=== PATIENT | male | born 1945 | race African-American/Black ===

== ENCOUNTER 2023-12-15 09:45 | Inpatient (IN) | payer OTHER ==
[~2023-12-15] VITALS: Ht 185.4 cm; Wt 138.5 kg
[2023-12-15] MEDS: SODIUM CHLORIDE 0.9% 1,000 ML IV ONE (10:30)
[2023-12-15] MEDS: PANTOPRAZOLE 40mg/50ML NS AE 50 ML IV ONE (10:30)
[2023-12-15 11:34] LABS: Basophils # (auto) 0 10 ^3/uL (0-0.2); Basophils % (auto) 0.3 % (0.0-2.0); Eosinophils # (auto) 0.2 10 ^3/uL (0-0.8); Eosinophils % (auto) 1.8 % (0.0-7.0); Hematocrit 40.8 % (41.0-53.0); Hemoglobin 13.2 g/dL (13.5-17.5); Lymphocytes # (auto) 2.2 10 ^3/uL (0.4-5.4); Lymphocytes % (auto) 20.3 % (10.0-50.0); Mean Corpuscular Hemoglobin 30.6 pg (28.0-32.0); Mean Corpuscular Hgb Conc. 32.3 g/dL (32.0-36.0); Mean Corpuscular Volume 94.8 fL (80.0-100.0); Monocytes # (auto) 1.4 10 ^3/uL (0-1.3); Monocytes % (auto) 12.6 % (0.0-12.0); Neutrophils # (auto) 7.1 10 ^3/uL (1.6-8.6); Nucleated Red Blood Cells % 0.1 %; Red Cell Distribution Width 15.3 % (11.8-14.3); White Blood Cell 10.9 10^3/uL (4.4-10.8)
[2023-12-15 11:43] VITALS: PULSE 90; RESP 18; O2SAT 97
[2023-12-15 11:48] LABS: INR 1.26 (0.9-1.15); Partial Thromboplastin Time 59.7 SEC (24.5-34.5)
[2023-12-15 11:50] LABS: Alanine Aminotransferase 22 U/L (7-40); Albumin 3.6 g/dL (3.2-4.8); Alkaline Phosphatase 62 U/L (46-116); Anion Gap 4 (5-15); Aspartate Aminotransferase 14 U/L (13-40); BUN/Creatinine Ratio 35.3 (10.0-20.0); Blood Urea Nitrogen 30 mg/dL (9-23); Calcium 10.1 mg/dL (8.5-10.1); Carbon Dioxide 29 mmol/L (20-30); Chloride 109 mmol/L (98-107); Glucose 68 mg/dL (74-106); Sodium 142 mmol/L (136-145)
[2023-12-15 11:51] LABS: Bilirubin, Total 0.4 mg/dL (0.2-1.0); Total Protein 6.2 g/dL (5.7-8.2)
[2023-12-15 13:35] LABS: Urine Bacteria MANY /hpf (None Seen); Urine Blood 2+ /uL (Negative); Urine Clarity HAZY (Clear); Urine Color Yellow (Yellow); Urine Mucus FEW (None Seen); Urine Protein, UAD TRACE (Negative); Urine Specific Gravity 1.019 (1.001-1.035); Urine Urobilinogen Normal (Negative); Urine WBC 50 /hpf (0 - 3); Urine WBC Clumps PRESENT /hpf (None Seen)
[2023-12-15] MEDS: FLEET ENEMA(ADULT) 135 ML PR SCH (15:30)
[2023-12-15] MEDS ORDERED: PANTOPRAZOLE 40mg/50ML NS AE 50 ML IV SCH (15:30)
[2023-12-15] MEDS ORDERED: MORPHINE SULFATE INJ 2 MG/ml SYRG IV PRN (15:30)
[2023-12-15] MEDS: SODIUM CHLORIDE 0.9% 1,000 ML IV SCH (15:30)
[2023-12-15] MEDS ORDERED: NITROGLYCERIN 0.4 MG SL TAB SL PRN (15:30)
[2023-12-15] MEDS ORDERED: DOCUSATE SOD 100 MG CAP PO PRN (15:30)
[2023-12-15] MEDS: cefTRIAXone 1GM/50ML D5W 50 ML IV ONE (15:35)
[2023-12-15] MEDS ORDERED: DEXTROSE (50%) 50ML SYRG IV PRN (16:30)
[2023-12-15] MEDS ORDERED: ATOR20TA50 PO (16:42)
[2023-12-15] MEDS ORDERED: HYDR25TA87 PO (16:42)
[2023-12-15] MEDS ORDERED: TAMS0.4C36 PO (16:42)
[2023-12-15] MEDS ORDERED: FINA5TAB4 PO (16:42)
[2023-12-15] MEDS ORDERED: ISOS20TA5 PO (16:42)
[2023-12-15] MEDS ORDERED: LEVO137T3 PO (16:42)
[2023-12-15] MEDS ORDERED: LEVO100T8 PO (16:42)
[2023-12-15] MEDS ORDERED: EMPA1TAB3 PO (16:42)
[2023-12-15] MEDS ORDERED: METO-159 PO (16:42)
[2023-12-15] MEDS ORDERED: IPRATROPIUM BROM 0.5 MG/2.5ML INH SOL NEB PRN (17:00)
[2023-12-15] MEDS ORDERED: ALBUTEROL SULF 2.5 MG/0.5ML(0.5%) NEB SOLN NEB PRN (17:00)
[2023-12-15 17:08] LABS: Hematocrit 39.9 % (41.0-53.0); Hemoglobin 12.9 g/dL (13.5-17.5)
[2023-12-15] MEDS: ACCU-CHEK COMFORT CURVE STRIP VI SCH (18:00)
[2023-12-15] MEDS: InsuLIN REG 1unit/0.01ml Soln (100units/ml) SC SCH (18:00)
[2023-12-15] MEDS: ISOSORBIDE DINITRATE 10 MG TAB PO SCH (19:45)
[2023-12-15] MEDS: LACTULOSE 20Gm/30ML SOLN PO SCH (22:00)
[2023-12-15] MEDS: hydrALAZINE HCL 25 MG TAB ONE (23:07)
[2023-12-15] MEDS: METOPROLOL TARTRATE 50 MG TAB ONE (23:07)
[2023-12-15] MEDS: PANTOPRAZOLE 40 MG/10 ML VIAL INJ IV ONE (23:07)
[2023-12-15] MEDS: ATORVASTATIN 20 MG TAB ONE (23:07)
[2023-12-15] MEDS: metroNIDAZOLE 500 MG TAB ONE (23:07)
[2023-12-15] MEDS: ATORVASTATIN 20 MG TAB PO SCH (23:09)
[2023-12-15] MEDS: PANTOPRAZOLE 40 MG/10 ML VIAL INJ IV SCH (23:09)
[2023-12-15] MEDS: hydrALAZINE HCL 25 MG TAB PO SCH (23:09)
[2023-12-15] MEDS: metroNIDAZOLE 500MG/100ML 100 ML IV ONE (23:11)
[2023-12-15] MEDS: METOPROLOL TARTRATE 50 MG TAB PO SCH (23:12)
[2023-12-15] MEDS: MORPHINE SULFATE INJ 2 MG/ml SYRG ONE (23:12)
[2023-12-15] MEDS: metroNIDAZOLE 500MG/100ML 100 ML IV SCH (23:13)
[2023-12-15] MEDS: MORPHINE SULFATE INJ 2 MG/ml SYRG IV PRN (23:13)
[2023-12-15 23:27] LABS: Hematocrit 38.8 % (41.0-53.0); Hemoglobin 12.6 g/dL (13.5-17.5)
[2023-12-16 00:44] VITALS: PULSE 88; RESP 19; O2SAT 98
[2023-12-16] MEDS: MORPHINE SULFATE INJ 2 MG/ml SYRG ONE (04:49)
[2023-12-16 04:50] LABS: Basophils # (auto) 0.1 10 ^3/uL (0-0.2); Basophils % (auto) 0.8 % (0.0-2.0); Eosinophils # (auto) 0.6 10 ^3/uL (0-0.8); Eosinophils % (auto) 6.2 % (0.0-7.0); Hematocrit 40.7 % (41.0-53.0); Hemoglobin 13.1 g/dL (13.5-17.5); Lymphocytes # (auto) 1.6 10 ^3/uL (0.4-5.4); Lymphocytes % (auto) 16.4 % (10.0-50.0); Mean Corpuscular Hemoglobin 30.8 pg (28.0-32.0); Mean Corpuscular Hgb Conc. 32.3 g/dL (32.0-36.0); Mean Corpuscular Volume 95.5 fL (80.0-100.0); Monocytes # (auto) 1.1 10 ^3/uL (0-1.3); Monocytes % (auto) 11.1 % (0.0-12.0); Neutrophils # (auto) 6.4 10 ^3/uL (1.6-8.6); Neutrophils % (auto) 65.5 % (37.0-80.0); Nucleated Red Blood Cells % 0.2 %; Red Blood Cells 4.26 10^6/uL (4.5-5.90); Red Cell Distribution Width 15.3 % (11.8-14.3); White Blood Cell 9.8 10^3/uL (4.4-10.8)
[2023-12-16] MEDS: metroNIDAZOLE 500MG/100ML 100 ML IV ONE (04:50)
[2023-12-16] MEDS: METOPROLOL TARTRATE 25 MG TAB ONE (04:50)
[2023-12-16 04:59] LABS: Alanine Aminotransferase 19 U/L (7-40); Alkaline Phosphatase 62 U/L (46-116); Anion Gap 4 (5-15); Aspartate Aminotransferase 14 U/L (13-40); BUN/Creatinine Ratio 32.2 (10.0-20.0); Blood Urea Nitrogen 29 mg/dL (9-23); Calcium 9.7 mg/dL (8.5-10.1); Carbon Dioxide 28 mmol/L (20-30); Chloride 109 mmol/L (98-107); Glucose 81 mg/dL (74-106); Potassium 3.8 mmol/L (3.5-5.1); Sodium 141 mmol/L (136-145)
[2023-12-16 05:00] LABS: Albumin 3.3 g/dL (3.2-4.8); Bilirubin, Total 0.6 mg/dL (0.2-1.0); Total Protein 5.8 g/dL (5.7-8.2)
[2023-12-16] MEDS ORDERED: LEVOTHYROXINE SODIUM 100 MCG TAB PO SCH (07:00)
[2023-12-16] MEDS ORDERED: PATIENTS OWN MEDICATION (Levothyroxine Sodium 1 TAB) PO SCH (10:00)
[2023-12-16] MEDS ORDERED: EMPAGLIFLOZIN 12.5 MG PO SCH (10:00)
[2023-12-16] MEDS: CEFTRIAXONE SODIUM 2 GM in D5W 5% 100 ML IV SCH (10:00)
[2023-12-16 10:13] VITALS: BP 97/76; PULSE 92; RESP 12; TEMP 98.4; O2SAT 98
[2023-12-16] MEDS: LEVOTHYROXINE SODIUM 25 MCG TAB PO SCH (10:52)
[2023-12-16] MEDS: LEVOTHYROXINE SODIUM 112 MCG TAB PO SCH (10:52)
[2023-12-16] MEDS: TAMSULOSIN HYDROCHLORIDE 0.4 MG CAP PO SCH (10:53)
[2023-12-16] MEDS: FINASTERIDE 5 MG TAB PO SCH (10:53)
[2023-12-16] MEDS: ONDANSETRON HCL 4 MG/2 ML VIAL IV PRN (10:54)
[2023-12-16 12:49] VITALS: RESP 22; O2SAT 96
[2023-12-16 14:13] LABS: Triglycerides 114 mg/dL (< 150)
[2023-12-16 14:14] LABS: LDL Cholesterol 47 mg/dL (< 100)
[2023-12-16 14:15] LABS: Cholesterol 98 mg/dL (< 200); HDL Cholesterol 26 mg/dL (40-59)
[2023-12-16 16:45] VITALS: BP 98/53; PULSE 77; RESP 18; TEMP 98.1; O2SAT 95; O2SAT 99
[2023-12-16 20:00] VITALS: PULSE 77; PULSE 78; RESP 21; O2SAT 97
[2023-12-16] MEDS: HYDROcodone-ACET 5/325MG TAB PO PRN (20:58)
[2023-12-16 22:00] VITALS: BP 117/63; PULSE 78; RESP 21; TEMP 97.8; O2SAT 97
[2023-12-17] VITALS (9 sets, daily range): BP systolic 107–121; BP diastolic 64–76; PULSE 70–78; RESP 18–22; TEMP 97.5–99.1; O2SAT 94–100
[2023-12-17 05:27] LABS: Basophils # (auto) 0.1 10 ^3/uL (0-0.2); Basophils % (auto) 0.7 % (0.0-2.0); Eosinophils # (auto) 0.9 10 ^3/uL (0-0.8); Eosinophils % (auto) 9.3 % (0.0-7.0); Hematocrit 36.7 % (41.0-53.0); Hemoglobin 11.9 g/dL (13.5-17.5); Lymphocytes # (auto) 1.5 10 ^3/uL (0.4-5.4); Lymphocytes % (auto) 16.6 % (10.0-50.0); Mean Corpuscular Hemoglobin 31.2 pg (28.0-32.0); Mean Corpuscular Hgb Conc. 32.4 g/dL (32.0-36.0); Mean Corpuscular Volume 96.2 fL (80.0-100.0); Monocytes # (auto) 1.2 10 ^3/uL (0-1.3); Monocytes % (auto) 12.9 % (0.0-12.0); Neutrophils # (auto) 5.6 10 ^3/uL (1.6-8.6); Neutrophils % (auto) 60.5 % (37.0-80.0); Nucleated Red Blood Cells % 0.1 %; Red Blood Cells 3.82 10^6/uL (4.5-5.90); Red Cell Distribution Width 15.1 % (11.8-14.3); White Blood Cell 9.2 10^3/uL (4.4-10.8)
[2023-12-17 05:42] LABS: Alanine Aminotransferase 16 U/L (7-40); Alkaline Phosphatase 58 U/L (46-116); Anion Gap 4 (5-15); Aspartate Aminotransferase 16 U/L (13-40); BUN/Creatinine Ratio 20.3 (10.0-20.0); Bilirubin, Total 0.6 mg/dL (0.2-1.0); Blood Urea Nitrogen 16 mg/dL (9-23); Calcium 9.2 mg/dL (8.5-10.1); Carbon Dioxide 28 mmol/L (20-30); Chloride 108 mmol/L (98-107); Glucose 68 mg/dL (74-106); Potassium 3.8 mmol/L (3.5-5.1); Sodium 140 mmol/L (136-145); Total Protein 5.7 g/dL (5.7-8.2)
[2023-12-17] MEDS: HYDROcodone-ACET 10/325MG TAB PO PRN (18:03)
[2023-12-18] VITALS (10 sets, daily range): BP systolic 100–127; BP diastolic 56–79; PULSE 60–79; RESP 17–22; TEMP 97.6–98.6; O2SAT 96–100
[2023-12-18 06:20] LABS: Basophils # (auto) 0.1 10 ^3/uL (0-0.2); Basophils % (auto) 0.6 % (0.0-2.0); Eosinophils # (auto) 0.7 10 ^3/uL (0-0.8); Eosinophils % (auto) 8.9 % (0.0-7.0); Hematocrit 36.6 % (41.0-53.0); Hemoglobin 11.4 g/dL (13.5-17.5); Lymphocytes # (auto) 1.8 10 ^3/uL (0.4-5.4); Lymphocytes % (auto) 22.5 % (10.0-50.0); Mean Corpuscular Hemoglobin 30.7 pg (28.0-32.0); Mean Corpuscular Hgb Conc. 31.3 g/dL (32.0-36.0); Monocytes # (auto) 1.2 10 ^3/uL (0-1.3); Monocytes % (auto) 14.9 % (0.0-12.0); Neutrophils # (auto) 4.2 10 ^3/uL (1.6-8.6); Neutrophils % (auto) 53.1 % (37.0-80.0); Nucleated Red Blood Cells % 0.2 %; Red Blood Cells 3.73 10^6/uL (4.5-5.90); Red Cell Distribution Width 15.2 % (11.8-14.3); White Blood Cell 7.9 10^3/uL (4.4-10.8)
[2023-12-18 06:40] LABS: Alanine Aminotransferase 14 U/L (7-40); Albumin 2.9 g/dL (3.2-4.8); Alkaline Phosphatase 54 U/L (46-116); Anion Gap 2 (5-15); Aspartate Aminotransferase 13 U/L (13-40); BUN/Creatinine Ratio 15.8 (10.0-20.0); Blood Urea Nitrogen 12 mg/dL (9-23); Calcium 8.5 mg/dL (8.7-10.4); Carbon Dioxide 29 mmol/L (20-30); Chloride 107 mmol/L (98-107); Glucose 89 mg/dL (74-106); Potassium 3.6 mmol/L (3.5-5.1); Sodium 138 mmol/L (136-145)
[2023-12-18 06:41] LABS: Bilirubin, Total 0.5 mg/dL (0.2-1.0)
[2023-12-18 06:42] LABS: Total Protein 5.2 g/dL (5.7-8.2)
[2023-12-18 19:51] LABS: COVID19 ANTIGEN SOFIA FIA NEGATIVE (NEGATIVE)
== END 2023-12-18 21:25 | disposition short-term general hospital (02) | DRG 391 ==
LOC: EDBD 09:45 → ER 09:45 → TELE 16:25 → ER 16:25 → TELE-EAST 12-16 16:30 → EAST 12-18 09:32
PROVIDERS: ADMIT Internal Medicine Pulmonary Disease; ATTEND Internal Medicine Pulmonary Disease
PROC: 5A09357 Assistance with Respiratory Ventilation, Less than 24 Consecutive Hours, Continuous Positive Airway Pressure (ICD-10-PCS; principal; 2023-12-18)
DX: K52.89 Other specified noninfective gastroenteritis and colitis (principal); I21.A1 Myocardial infarction type 2; B15.9 Hepatitis A without hepatic coma; I50.42 Chronic combined systolic (congestive) and diastolic (congestive) heart failure; Z68.41 Body mass index [BMI] 40.0-44.9, adult; I25.10 Atherosclerotic heart disease of native coronary artery without angina pectoris; I11.0 Hypertensive heart disease with heart failure; Z20.822 Contact with and (suspected) exposure to COVID-19; I48.91 Unspecified atrial fibrillation; I27.20 Pulmonary hypertension, unspecified; E11.9 Type 2 diabetes mellitus without complications; E78.5 Hyperlipidemia, unspecified; M10.9 Gout, unspecified; K21.9 Gastro-esophageal reflux disease without esophagitis; E89.0 Postprocedural hypothyroidism; E66.9 Obesity, unspecified; Z95.1 Presence of aortocoronary bypass graft; Z88.8 Allergy status to other drugs, medicaments and biological substances; Z91.014 Allergy to mammalian meats
CPT/HCPCS: 36415; 71045; 74018; 74176; 76775; 80053; 80061; 81001; 82270; 82962; 83036; 83880; 84443; 84484; 85014; 85018; 85025; 85610; 85730; 86850; 86900; 86901; 87086; 87426; 93005; 93306; 94660; 99291; C9113; G0378; J0696; J2405; J3490; J7060